=== PATIENT | male | born 1990 | race Caucasian/White ===

== ENCOUNTER 2018-06-14 14:49 | Emergency (ER) | payer BC ==
[~2018-06-14] VITALS: Ht 180.3 cm; Wt 91.6 kg
[2018-06-14 15:07] VITALS: BP 152/94
--- NOTE | 2018-06-14 15:17 | NUR ---
PT TO ER BED 12. AAOX4. NAD. AMBULATORY. C/O R EYE ITCHING AND BLURRED VISION. PUTTING CIPROFLOXACIN 3% EYEDROPS AND OLOOATADINE 0.1% SINCE SUNDAY. AWAITING MD BLAKE.
--- NOTE | 2018-06-14 15:29 | NUR ---
[facility]179 [phone]
[2018-06-14] MEDS ORDERED: TETRACAINE HCL/PF 0.5% UD 2 ML BOTTLE ONE (15:49)
[2018-06-14] MEDS ORDERED: FLUORESCEIN SODIUM OPHTH 1 EA STRIP ONE (15:49)
[2018-06-14] MEDS ORDERED: TETRACAINE HCL/PF 0.5% UD 2 ML BOTTLE RIGHTEYE ONE (16:00)
[2018-06-14] MEDS ORDERED: FLUORESCEIN SODIUM OPHTH 1 EA STRIP OP ONE (16:00)
== END 2018-06-14 16:55 | disposition home or self-care (01) ==
LOC: ER 14:54
DX: H10.11 Acute atopic conjunctivitis, right eye (principal); H57.11 Ocular pain, right eye; Z88.1 Allergy status to other antibiotic agents